=== PATIENT | female | born 1965 | race Caucasian/White ===

== ENCOUNTER 2020-10-13 16:14 | Emergency (ER) | payer OTHER ==
[~2020-10-13] VITALS: Ht 157.5 cm; Wt 74.8 kg
[2020-10-13 21:38] VITALS: BP 147/88
== END 2020-10-13 21:20 | disposition home or self-care (01) ==
LOC: ER 16:14
DX: M62.830 Muscle spasm of back (principal); K82.8 Other specified diseases of gallbladder; I10 Essential (primary) hypertension
CPT/HCPCS: 71250; 72128; 93005